=== PATIENT | male | born 1995 | race American Indian/Alaskan Native ===

== ENCOUNTER 2024-08-07 18:58 | Emergency (ER) | payer SELFPAY ==
[~2024-08-07] VITALS: Ht 175.3 cm; Wt 88.0 kg
[2024-08-07 18:59] VITALS: BP 129/69; PULSE 74; RESP 16; O2SAT 98
--- NOTE | 2024-08-07 19:23 | RADIOLOGY REPORT ---
CLINICAL INDICATION: ELBOW PAIN LEFT TECHNIQUE: Left DI ELBOW, COMPLETE (3VW MIN) Comparison: None FINDINGS/IMPRESSION: : There is no evidence of acute fracture or dislocation. Soft tissues are unremarkable.
--- NOTE | 2024-08-07 20:56 | Physician Documentation ---
History of Present Illness ~ Chief Complaint: Elbow pain Stated Complaint: ELBOW PAIN Time Seen by MD: 20:20 HPI This 29-year-old male presents with pain to his left elbow after he slipped while hiking yesterday striking his left elbow on some rocks, patient reports he did not strike his head or lose consciousness, patient additionally reports he has abrasions to left leg and elbow though he is less concerned about the abrasions. Patient reports that he did wash the abrasions after the injury. Patient reports the pain is well managed with [id number] medications. Patient is primarily concerned that he may have broken his elbow though reports he has full range of motion in the arm and reports no decreased sensation distal to the injury. Patient reports he is unsure of last tetanus booster in his requesting tetanus booster. Patient reports no other acute symptoms or concerns including no other injuries. Tetanus within 5 years: Yes (MORE THAN 5 YEARS ) Medication Reconciliation Allergies: Coded Allergies: No Known Allergies (Unverified , 08/07/24) Review of Systems ROS Left elbow pain, abrasions to left leg as stated above in the HPI, otherwise all systems are reviewed and negative. Physical Exam Vital Signs: Temperature: 99.0, Source: Oral, Heart Rate: 74, Respiratory Rate: 16, BP: 129/69, Pulse Oximetry: 98, Weight: 88.000 Oxygen Flow Rate: 0 Physical Exam VITALS: Reviewed and as above. GENERAL: Alert, nontoxic appearing, no apparent distress. HEENT: Atraumatic RESPIRATORY: No increased work of breathing, no respiratory distress, speaking in full clear sentences CHEST: Nontender to palpation BACK: Nontender to palpation MUSCULOSKELETAL: Left elbow range of motion intact. Tenderness to palpation to the posterior aspect of left elbow without tenderness to palpation to the lateral medial for interior aspect of the elbow, neurovascularly intact with brisk capillary refill, strong radial pulse, and sensation intact distal to injury. No swelling, no obvious deformity SKIN: Abrasions to posterior aspect of left elbow, abrasions to lateral aspect of left lower extremity Progress Results/Orders Results/Orders Completed Orders - VALENTINA HOANG PUBLIC RELATIONS DIRECTOR Tetanus/Pertuss/Diph Acell/Pf (Boostrix (08/07/24 21:00) Medications Received in ER Medications (Trade) Dose Ordered Sig/Lai Route PRN Reason Start Time Stop Time Status Last Admin Dose Admin (Boostrix vaccine syringe) 0.5 ml ONCE ONCE IMVAC 08/07/24 21:00 08/07/24 21:01 DC 08/07/24 21:16 0.5 ML Vital Signs 08/07/24 08/07/24 18:59 21:08 Temp 99.0 99.0 Pulse 74 Resp 16 B/P (MAP) 129/69 Pulse Ox 98 O2 Flow Rate 0 EKG/XRAY/CT/US/VASC/MRI Bone/Soft Tissue X-Ray (Ext.) : Additional Comment CLINICAL INDICATION: ELBOW PAIN LEFT TECHNIQUE: Left DI ELBOW, COMPLETE (3VW MIN) Comparison: None FINDINGS/IMPRESSION: : There is no evidence of acute fracture or dislocation. Soft tissues are unremarkable. Electronically Signed by:PERFECTO PARK MD Date & Time: 08/07/241920 Dictated by: PERFECTO PARK MD Dictation date and time: 08/07/241920 I have reviewed and agree with the radiology report. I have reviewed and interpreted the imaging as: No fracture or dislocation Medical Decision Making Findings This 29-year-old male presented with pain and abrasions to his left elbow and abrasions to his left lower extremity, x-ray obtained of the elbow did not de monstrate evidence of fracture or dislocation, all abrasions are superficial and appear to be have lost prior to arrival with no evidence of retained foreign body. Left arm is neurovascularly intact. Patient's Tdap booster provided. Patient provided home care instructions, wound care instructions, follow up instructions, and return to care precautions which she verbalized understanding of. Patient physical exam was otherwise benign and appropriate for outpatient follow up. General Diff Dx:Considerations: Include: Contusion, Fracture, Hematoma, Laceration, Neurovascular injury Elbow Diff Dx:Considerations: Include: Arthritis, DJD, Fracture-humerus, Fracture-radial head, Fracture-radius, Gout, Olecranon bursitis, Septic Departure Disposition: HOME / SELF CARE / HOMELESS Impression: Primary Impression: Left elbow pain Additional Impression: Abrasions of multiple sites Condition: Improved Discharge Instructions: RICE Therapy for Routine Care of Injuries Additional Instructions: Keep your wounds clean dry and covered. Please see the attached home care instructions for rest ice compression elevation treatment of your elbow injury. Please follow up with your primary care provider in the next few days. Please return to the emergency department for any new or worsening concerning symptoms. Referrals: NO PRIMARY CARE PROVIDER (PCP) Education Educated: Patient Educated regarding: diagnosis, treatment, prognosis, need for follow up Signature Scribe Signature: No scribe Attestation: The note accurately reflects work and decisions made by me.ELLEN Keenan 08/08/24 02:29 VALENTINA HOANG August 07, 2024 20:56
[2024-08-07 21:08] VITALS: TEMP 99
[2024-08-07] MEDS: TETanus/Pertussis (Acell)/Diphther VAC/PF (Tdap-Adult) 0.5ml syringe IMVAC ONE (21:16)
== END 2024-08-07 21:17 | disposition home or self-care (01) ==
LOC: ER 18:59
DX: S50.312A Abrasion of left elbow, initial encounter (principal); S80.812A Abrasion, left lower leg, initial encounter; M25.522 Pain in left elbow; W01.0XXA Fall on same level from slipping, tripping and stumbling without subsequent striking against object, initial encounter; Y93.89 Activity, other specified; Y92.89 Other specified places as the place of occurrence of the external cause; Y99.8 Other external cause status
CPT/HCPCS: 73080; 90471; 90715; 99283

== ENCOUNTER 2025-01-05 15:46 | Emergency (ER) | payer OTHER ==
[~2025-01-05] VITALS: Ht 175.3 cm; Wt 84.5 kg
[2025-01-05 16:04] LABS: LEUKOCYTE ESTERASE ,URINE NEGATIVE (Neg); NITRITES, URINE NEGATIVE (Neg); OCCULT BLOOD,URINE NEGATIVE (Neg)
[2025-01-05 16:16] LABS: UA COLLECTION TYPE CLN CATCH MIDSTREAM
[2025-01-05 16:35] LABS: MEAN PLATELET VOLUME 8.9 FL (7.4-10.4); RED CELL DISTRIBUTION WIDTH 13.3 % (11.5-14.5)
[2025-01-05 16:49] LABS: CREATININE 0.90 MG/DL (0.60-1.10); TOTAL CARBON DIOXIDE 29.8 MMOL/L (24-32); eCRCL 123 ML/MIN; eGFR > 90 ML/MIN
[2025-01-05] MEDS: ketorolac trometh 30MG/ML vial 30 MG/ML VIAL IV STA (18:53)
[2025-01-05] MEDS: normal saline 1000ml 1,000 ML IV STA ×2 (18:54)
[2025-01-05] MEDS: acetaminophen 1,000mg/100ml IV 100 ML IV STA (18:54)
--- NOTE | 2025-01-05 19:58 | Physician Documentation ---
History of Present Illness Chief Complaint: Abdominal Pain Stated Complaint: SIDE PAIN Time Seen by MD: 17:44 OK to notify your PCP?: Yes Source: patient, RN/MD Mode of Arrival: POV, Ambulatory HPI Patient is seen today with complaints of epigastric abdominal discomfort and pain with associated nausea and vomiting with history of pancreatitis alcohol induced. Patient states he has cut back on his consumption of hard alcohol but states he still been drinking and been trying to cut back over the last six months. Patient states his last attack of pancreatitis was a few months ago. Patient states it seems to come and go but this time started about three days ago and he has not been able to tolerate any significant amount of liquid or solid for the last three days. Patient states he has not had any alcohol to drink for three days and denies any history of delirium tremens or alcohol withdrawal syndrome. Patient denies any current chest pain or shortness of breath in his no other concern or complaint at this time. Medication Reconciliation Allergies: Coded Allergies: No Known Allergies (Unverified , 08/07/24) Review of Systems Constitutional: Denies: chills, fever, weakness Eyes: Denies: pain, blurred vision ENT: Denies: ear pain, nose pain, throat pain, mouth pain Respiratory: Denies: cough, shortness of breath Cardiovascular: Denies: chest pain, palpitations Gastrointestinal: Denies: abdominal pain, nausea, vomiting Genitourinary: Denies: burning, dysuria Male Genitalia: Denies: penile discharge, testicular pain Neurological: Denies: headache, dizziness Musculoskeletal: Denies: pain, swelling Integumentary: Denies: rash, lesions Allergic/Immunologic: Denies: hives, itching Hematologic/Lymphatic: Denies: no symptoms reported Psychiatric: Denies: depression, anxiety Physical Exam Vital Signs: Temperature: 98.9, Source: Oral, Heart Rate: 76, Respiratory Rate: 16, BP: 138/71, Pulse Oximetry: 98, Weight: 84.500 Oxygen Flow Rate: 0 Physical Exam General: Awake and Alert, no acute distress. HEENT: Conjunctiva pink, Sclera clear, Mucus Membranes moist. Neck: Supple without masses and tenderness. Resp: Unlabored. Lungs clear to auscultation bilaterally. Heart: Regular Rate and rhythm, normal S1 and S2 without murmur, rub or gallop. Abdomen: Abdomen is soft, nondistended, tenderness to palpation in the epigastric area, no rebound, no guarding, Extremities: No cyanosis,clubbing or edema. Skin: Warm and Dry. Progress Results/Orders Results/Orders Orders - TAPAN HERNANDEZ PAC Saline Lock (01/05/25 ) Completed Orders - TAPAN HERNANDEZ PAC Prochlorperazine Inj (Compazine Inj) (01/05/25 18:02) Ketorolac Trometh 30mg/Ml Vial (Toradol (01/05/25 18:02) Acetaminophen 1,000mg/100ml Iv (Ofirmev (01/05/25 18:02) Normal Saline 1000ml (0.9% Sodium Chlori (01/05/25 18:02) Normal Saline 1000ml (0.9% Sodium Chlori (01/05/25 18:02) Medications Received in ER Medications (Trade) Dose Ordered Sig/Lai Route PRN Reason Start Time Stop Time Status Last Admin Dose Admin (Compazine inj) 10 mg ONCE STAT IV 01/05/25 18:02 01/05/25 18:07 DC 01/05/25 18:54 10 MG (Toradol inj. 30mg/ml) 30 mg ONCE STAT IV 01/05/25 18:02 01/05/25 18:07 DC 01/05/25 18:53 30 MG Acetaminophen 100 ml @ 400 mls/hr ONCE STAT IV 01/05/25 18:02 01/05/25 18:16 DC 01/05/25 18:54 400 MLS/HR Sodium Chloride 1,000 ml @ 1,000 mls/hr ONCE STAT IV 01/05/25 18:02 01/05/25 19:01 DC 01/05/25 18:54 1,000 MLS/HR Sodium Chloride 1,000 ml @ 1,000 mls/hr ONCE STAT IV 01/05/25 18:02 01/05/25 19:01 DC 01/05/25 18:54 1,000 MLS/HR Vital Signs 01/05/25 01/05/25 01/05/25 01/05/25 15:50 17:01 17:05 17:51 Temp 98.9 Pulse 86 91 84 Resp 16 16 16 16 B/P (MAP) 123/66 139/86 (103) 131/83 (99) Pulse Ox 100 98 100 O2 Flow Rate 0 0 0 01/05/25 01/05/25 18:53 19:35 Temp 98.9 Pulse 76 Resp 16 16 B/P (MAP) 138/71 (93) Pulse Ox 98 O2 Flow Rate 0 Laboratory Tests Test 01/05/25 15:54 01/05/25 16:17 Urine Specimen Description Cln catch midstream Urine Color Yellow Urine Clarity Clear Urine pH 6.0 Urine Specific [place] 1.020 Urine Protein Negative Urine Glucose (UA) Negative Urine Ketones >=80 Urine Occult Blood Negative Urine Nitrite Negative Urine Bilirubin Small Urine Urobilinogen 0.2 Urine Leukocyte Esterase Negative Urine Culture Indicated Not ind Volume Urine Centrifuged 10 ml Urine Comment White Blood Count 9.4 Red Blood Count 5.23 Hemoglobin 15.5 Hematocrit 44.6 Mean Corpuscular Volume 85.3 Mean Corpuscular Hemoglobin 29.6 Mean Corpuscular Hemoglobin Concent 34.7 Red Cell Distribution Width 13.3 Platelet Count 178 Mean Platelet Volume 8.9 Neutrophils (%) (Auto) 77.2 H Lymphocytes (%) (Auto) 12.5 L Monocytes (%) (Auto) 8.7 Eosinophils (%) (Auto) 1.3 Basophils (%) (Auto) 0.3 Neutrophils # (Auto) 7.2 Lymphocytes # (Auto) 1.2 Monocytes # (Auto) 0.8 Eosinophils # (Auto) 0.1 Basophils # (Auto) 0.0 CBC Comment Sodium Level 135 Potassium Level 3.8 Chloride Level 98 L Carbon Dioxide Level 29.8 Anion Gap 7 L Blood Urea Nitrogen 5 L Creatinine 0.90 Estimated GFR/1.73 m2 > 90 BUN/Creatinine Ratio 5.6 L Glucose Level 104 Calcium Level 9.1 Total Bilirubin 0.9 Aspartate Amino Transf (AST/SGOT) 25 Alanine Aminotransferase (ALT/SGPT) 42 Alkaline Phosphatase 126 H Total Protein 8.4 H Albumin 3.9 Globulin 4.5 H Albumin/Globulin Ratio 0.9 L Lipase 129 H Chemistry Comments Medical Decision Making Additional information obtaine: N/A Findings Patient is seen today with complaints of epigastric abdominal discomfort and pain with associated nausea and vomiting with history of pancreatitis alcohol induced. Patient states he has cut back on his consumption of hard alcohol but states he still been drinking and been trying to cut back over the last six months. Patient states his last attack of pancreatitis was a few months ago. Patient states it seems to come and go but this time started about three days ago and he has not been able to tolerate any significant amount of liquid or solid for the last three days. Patient states he has not had any alcohol to drink for three days and denies any history of delirium tremens or alcohol withdrawal syndrome. Patient denies any current chest pain or shortness of breath in his no other concern or complaint at this time. The patient did receive 2 L of fluid as well as Toradol 30 mg IV and acetaminophen a 1000 mg IV and Compazine 10 mg IV and patient states he is feeling much better and was able to tolerate some apple juice. Patient was strongly advised to discontinue the consumption of any and all alcohol forever. Patient will be discharged and will return to ED with any worsening, concerning or changing symptoms. Patient was given a prescription for Zofran for nausea. Differential Dx:Considerations: Cholangitis, Cholelithasis, Constipation, Diverticular disease, Esophagitis, Hepatitis, Inflammatory BD, Ischemic bowel, Pancreatitis, Urolithiasis Departure Disposition: 01 HOME / SELF CARE / HOMELESS Impression: Primary Impression: Pancreatitis Qualified Codes: K85.20 - Alcohol induced acute pancreatitis without necrosis or infection Condition: Improved Discharge Instructions: Acute Pancreatitis, [id number], Chronic Pancreatitis Additional Instructions: The patient did receive 2 L of fluid as well as Toradol 30 mg IV and acetaminophen a 1000 mg IV and Compazine 10 mg IV and patient states he is feeling much better and was able to tolerate some apple juice. Patient was strongly advised to discontinue the consumption of any and all alcohol forever. Patient will be discharged and will return to ED with any worsening, concerning or changing symptoms. Patient was given a prescription for Zofran for nausea. Referrals: NO PRIMARY CARE PROVIDER (PCP) Signature Scribe Signature: No scribe Attestation: No scribe TAPAN HERNANDEZ PAC Jan 05, 2025 19:58
[2025-01-05 20:09] VITALS: BP 137/73; PULSE 76; RESP 18; TEMP 98.9; O2SAT 99
== END 2025-01-05 20:22 | disposition home or self-care (01) ==
LOC: ER 15:47
DX: K85.20 Alcohol induced acute pancreatitis without necrosis or infection (principal); Z87.19 Personal history of other diseases of the digestive system
CPT/HCPCS: 36415; 80053; 81003; 83690; 85025; 96361; 96374; 96375; 99285; J0131; J0780; J1885; J7030